=== PATIENT | male | born 1960 ===

== ENCOUNTER 2019-02-15 06:56 | Day surgery (SDC) | payer BC ==
[2019-02-15] MEDS ORDERED: LIDOCAINE 2% MDV (20MG/ML) 20ML VIAL IV ONE (06:57)
[2019-02-15] MEDS ORDERED: MIDAZOLAM HCL 2MG/2ML VIAL IV ONE (06:57)
[2019-02-15] MEDS ORDERED: PROPOFOL 10 MG/ML VIAL IV ONE (06:57)
--- NOTE | 2019-02-18 09:30 | Operative Note ---
DATE OF SURGERY: 02/15/2019 SURGEON: Petar Hilton MD OPERATION: COLONOSCOPY. INDICATIONS: This is a 58-year-old male with average risk for colorectal cancer who has had last colonoscopy about 5 years ago but with poor bowel preparation and now presented for repeat colonoscopy for screening. POSTOPERATIVE DIAGNOSES: 1. A 3 mm sessile polyp in the ascending colon that was removed by cold biopsy forceps. 2. A 3 mm sessile polyp in the descending colon that was removed by cold biopsy forceps. 3. Five 2-3 mm sessile polyps in the rectum that were removed by cold biopsy forceps. 4. O2 normal colon. ANESTHESIA: Sedation is per Anesthesia. Pulse oximetry was monitored throughout the procedure to maintain O2 saturation of 90% or greater. Supplemental oxygen was administered via nasal cannula. Cardiac and vital signs were monitored throughout the duration of the procedure, and they were stable. The procedure of colonoscopy and risks and alternatives of the procedure, including the risk of bleeding and perforation, among others, were explained to the patient who voiced understanding and agreed to have the procedure done. Physical examination was performed, and the patient was found stable for sedation. PROCEDURE: The patient was placed in the left lateral position. Sedation was initiated. A digital rectal exam was performed and showed some mild external hemorrhoids with no palpable rectal masses. An Olympus PCF-180AL colonoscope was then inserted into the rectum under direct visualization. It was advanced to the cecum without difficulty. The ileocecal valve and appendiceal orifice were identified and photographed. The colonic mucosa was carefully examined upon introduction of the colonoscope. In the ascending colon was a 3 mm sessile polyp that was noted and was removed by cold biopsy forceps. The rest of the cecum and ascending colon mucosa appeared normal. The ileocecal valve was intubated and terminal ileal mucosa was inspected for about 10 cm and it appeared normal. The colonoscope was then withdrawn while carefully examining the colonic mucosal surfaces. No other lesions were noted in the cecum, ascending, or transverse colon. In the descending colon was a 3 mm sessile polyp that was noted and was removed by cold biopsy forceps. The sigmoid colon mucosa appeared normal. In the rectum were five 2-3 mm sessile polyps that were noted and were removed by cold biopsy forceps. Retroflexion revealed no other lesions. The colonoscope was then withdrawn and the procedure was terminated. The patient tolerated the procedure well without any immediate complications. The patient remained with stable vital signs and was transferred to the recovery room. RECOMMENDATIONS: 1. The patient should be on a high-fiber diet. 2. The patient is to have a repeat colonoscopy for surveillance in 3 or 5 years depending on the histology of the polyps. Thank you for allowing me to participate in the care of your patient. CC: MD CRISTIN Kearney
== END 2019-02-15 08:55 | disposition home or self-care (01) ==
LOC: HOP 06:56
PROVIDERS: ATTEND Internal Medicine Gastroenterology
DX: Z12.11 Encounter for screening for malignant neoplasm of colon (principal); D12.2 Benign neoplasm of ascending colon; D12.4 Benign neoplasm of descending colon; D12.8 Benign neoplasm of rectum